=== PATIENT | male | born 1980 | race Caucasian/White ===

== ENCOUNTER 2021-11-13 09:33 | Emergency (ER) | payer OTHER, SELFPAY ==
[2021-11-13 09:44] VITALS: BP 141/108; PULSE 105; RESP 16; TEMP 36.3; O2SAT 98
--- NOTE | 2021-11-13 09:48 | ED.NAVMDI ---
HPI - Nausea/Vomiting/Diarrhea General Chief complaint: Nausea/Vomiting/Diarrhea Stated complaint: nausea, diarrhea, vomitting Time Seen by Provider: 11/13/21 09:48 Source: patient, RN notes reviewed and old records reviewed Mode of arrival: ambulatory Limitations: no limitations History of Present Illness HPI Narrative: 41-year-old male who presents to [facility] care with complaints of feeling 'Pukey' all day yesterday with nausea and vomiting but no diarrhea. Patient reports that he resumed his Zoloft this morning at dose he use to be on of 150 mg and felt shaky and lightheaded since taking. He went to work this morning and has had nausea and vomiting and also diarrhea today. He states that he had to leave work due to nausea and vomiting repeatedly. Patient states that he has some stomach cramping epigastric and mid abdominal area, denies any pain to lower abdominal region, no fevers,chills or sweats verbalized. Patient reports that he has had COVID vaccinations MD elicited complaint: nausea, vomiting and diarrhea Onset (ago): day(s) (2) Associated nausea: Yes Associated abdominal pain: Yes (cramping) Location of pain: epigastric and periumbilical Exacerbating factors: medication (resumed Zoloft this morning) Associated symptoms: loss of appetite, malaise, nausea/vomiting and other (abdominal cramping and lightheaded) Treatment prior to arrival: none Related Data Allergies Allergy/AdvReac Type Severity Reaction Status Date / Time shellfish derived Allergy Severe Anaphylactic Verified 03/19/20 14:11 Shock animal dander Allergy Intermediate Difficulty Verified 03/19/20 14:11 Breathing Review of Systems Review of Systems: CONSTITUTIONAL: Denies fever, chills, or sweats. EYES: Denies visual changes, redness, or discharge. ENT: Denies rhinorrhea, congestion, sore throat, or otalgia. CARDIOVASCULAR: Denies chest pain, palpitations, or edema. RESPIRATORY: Denies cough or dyspnea. GASTROINTESTINAL: states abdominal cramping, nausea, vomiting, or diarrhea. GENITOURINARY: Denies dysuria or hematuria. SKIN: Denies rash or itching. MUSCULOSKELETAL: Denies back pain, joint pain, or myalgia. NEUROLOGIC: Denies headache, numbness, or weakness, feels lightheaded. PSYCHIATRIC: Positive for anxiety or depression. All systems reviewed & are unremarkable except as noted in HPI and below PMFSH Past Medical History Medical History (Updated 11/13/21 @ 12:03 by Angy Tavarez NP) Anxiety and depression Asthma Back pain Overweight (BMI 25.0-29.9) Shortness of breath Surgical History Surgical History H/O left knee surgery (~02/1999) Family History Family History Father Alive and well Mother Stomach ulcer Social History Social History (Updated 11/13/21 @ 12:00 by Angy Tavarez NP) Smoking status: Never smoker Alcohol intake: current Substance use type: does not use Gender identity (if verbalized by the patient): Male Comments At time of signature, agree with nursing past medical, surgical, social and family history. There is no relevant family history pertinent to the presenting complaint Exam Narrative: GENERAL: Well-appearing, well-nourished, and in no acute distress. HEAD: Normocephalic, atraumatic. EYES: PERRLA and EOMI. ENT: Nares clear, no rhinorrhea or epistaxis. Mucous membranes moist.TM's normal with good light reflex, throat pink with no lesions or exudates NECK: Supple.no lymphadenopathy CHEST: Clear to auscultation. No respiratory distress.SAO2 98% on room air HEART: Regular rate and rhythm. No murmur heard. Normal peripheral pulses. ABDOMEN: Soft, tender epigastric and umbilical with cramping, nondistended, normal active bowel sounds, nausea and vomiting continues with emesis while in clinic X1. EXTREMITIES: Normal range of motion. No edema. SKIN: Warm, dry, no rash. NEURO: No focal de
[2021-11-13] MEDS: ONDANSETRON HCL ODT 4 MG TABLET SUBLINGUAL ×2 (10:03→11:10)
--- NOTE | 2021-11-13 10:49 | PC.NURSE ---
Tolerated zofran well. Given water to sip for fluid challenge.
[2021-11-13 11:16] VITALS: BP 126/80
--- NOTE | 2021-11-13 11:18 | PC.NURSE ---
No further vomiting since zofran. Able to keep a bottle of water down without vomiting
== END 2021-11-13 11:29 | disposition home or self-care (01) ==
PROVIDERS: Emergency Provider Registered Nurse; PCP Family Medicine
DX: K52.9 Noninfective gastroenteritis and colitis, unspecified (principal); J45.909 Unspecified asthma, uncomplicated
CPT/HCPCS: 99213; A9270; G0463

== ENCOUNTER 2022-04-08 08:28 | Inpatient (IN) | payer OTHER, SELFPAY ==
[2022-04-08] VITALS (9 sets, daily range): BP systolic 113–142; BP diastolic 73–95; PULSE 77–98; RESP 16–20; TEMP 36.2–37.2; O2SAT 96–100
--- NOTE | ~2022-04-08 | US_ITS ---
EXAMINATION: US abdomen limited DATE: 04/09/2022 09:40 INDICATION: Abdominal pain. Abnormal liver function tests. TECHNIQUE: Multiple grayscale and Doppler ultrasound images of the abdomen were obtained. COMPARISON: CT abdomen and pelvis 04/08/2022 FINDINGS: The head of the pancreas demonstrates heterogeneous echogenicity, consistent with acute ngo creatitis. There is diffuse hepatic steatosis with focal sparing in the gallbladder fossa. No liver s urface nodularity. There is normal flow in main portal vein. The gallbladder is distended and contain s sludge. No gallstones or gallbladder wall thickening. There was no sonographic Perry sign. The com mon duct is normal and measures 6 mm. IMPRESSION: 1. Acute pancreatitis. 2. Diffuse hepatic steatosis. 3. Gallbladder sludge. Gallbladder distention may be secondary to fasting. No gallbladder wall thicke keith, gallstones, or sonographic Perry sign to suggest acute cholecystitis. Reviewed, dictated and finalized at location A. Y LEVEL FINANCIAL ANALYST IMPRESSION: 1. Acute pancreatitis. 2. Diffuse hepatic steatosis. 3. Gallbladder sludge. Gallbladder distention may be secondary to fasting. No g allbladder wall thickening, gallstones, or sonographic Perry sign to suggest a cute cholecystitis.
--- NOTE | ~2022-04-08 | NM_ITS ---
EXAMINATION: NM hepatobiliary w pharm DATE: 04/10/2022 13:17 INDICATION: Right upper quadrant abdominal pain. Biliary sludge. COMPARISON: CT abdomen and pelvis 04/08/2022, ultrasound 04/09/2022 TECHNIQUE: 5.09 mCi Tc-99m mebrofenin (Choletec) was administered intravenously. Scintigraphic image s of the abdomen were obtained for one hour. Then, the patient drank 8 oz Ensure, and imaging was con tinued for 60 minutes. FINDINGS: There is normal clearance of radiotracer from the blood pool. There is homogeneous tracer u ptake by the liver. Activity progresses to the bowel and gallbladder. Gallbladder ejection fraction (GBEF) was 6%. Note that with this technique, normal GBEF >= 33%. IMPRESSION: 1. Low gallbladder ejection fraction, consistent with gallbladder dysfunction and/or chronic cholecy stitis. Reviewed, dictated and finalized at location A. ING TECHNICIAN IMPRESSION: 1. Low gallbladder ejection fraction, consistent with gallbladder dysfunction and/or chronic cholecystitis.
--- NOTE | ~2022-04-08 | CT_ITS ---
EXAMINATION: CT abdomen pelvis w con INDICATION: Right-sided abdominal pain TECHNIQUE: Computed tomographic images of the abdomen and pelvis were obtained after the administrati on of 100 cc of Omnipaque 350 intravenous contrast. The dose-length product (DLP) was 470.30 mGy-cm. Automated exposure control and iterative reconstruction technique were employed. COMPARISON: None available FINDINGS: Minimal dependent atelectasis is present in the lung bases. The heart size is normal. The l iver is diffusely low in attenuation when compared with the spleen, consistent with hepatic steatosis . The spleen, gallbladder, and adrenal glands are normal. There is edema in the head of the pancreas with acute peripancreatic fluid extending into the anterior pararenal space on the right and into the right pericolic gutter. The kidneys are unremarkable. No pathologically enlarged abdominal or pelvic lymph nodes are identified. There is no free intraperitoneal gas or evidence of bowel obstruction. T he appendix is normal. There is moderate lumbar spondylosis at L5-S1. A small umbilical hernia contai keith fat is noted. IMPRESSION: 1. Acute pancreatitis, likely interstitial edematous, with acute peripancreatic fluid collection exte nding into the anterior pararenal space on the right and right pericolic gutter. Reviewed, dictated and finalized at location L. MENTAL IRON WORKER IMPRESSION: 1. Acute pancreatitis, likely interstitial edematous, with acute peripancreatic fluid collection extending into the anterior pararenal space on the right and right pericolic gutter.
--- NOTE | 2022-04-08 09:22 | ED.ABDPAIN ---
HPI - Abdominal Pain General Chief Complaint: Abdominal Pain Stated Complaint: UPPER ABD PAIN X3DAYS Time Seen by Provider: 04/08/22 08:53 History of Present Illness HPI narrative: 41-year-old male history of anxiety and depression presents to the emergency room for evaluation of periumbilical and right upper quadrant abdominal pain. Patient states that he has been drinking heavily over the last couple of weeks since losing his job. States on Thursday he began experiencing right upper quadrant pain that radiated into his periumbilical area. States that he normally drinks 6 or more drinks at night twice a week until recently. On Thursday was experiencing multiple episodes of nonbloody nonbilious vomiting. His pain is worse with inspiration and movement. Related Data Allergies Allergy/AdvReac Type Severity Reaction Status Date / Time shellfish derived Allergy Severe Anaphylactic Verified 04/08/22 09:03 Shock animal dander Allergy Intermediate Difficulty Verified 04/08/22 09:03 Breathing Review of Systems Review of Systems: CONSTITUTIONAL: Denies fever, chills, or sweats. EYES: Denies visual changes, redness, or discharge. ENT: Denies rhinorrhea, congestion, sore throat, or otalgia. CARDIOVASCULAR: Denies chest pain, palpitations, or edema. RESPIRATORY: Denies cough or dyspnea. GASTROINTESTINAL: Reports abdominal pain, nausea vomiting GENITOURINARY: Denies dysuria or hematuria. SKIN: Denies rash or itching. MUSCULOSKELETAL: Denies back pain, joint pain, or myalgia. NEUROLOGIC: Denies headache, numbness, dizziness, or weakness. PSYCHIATRIC: Denies anxiety or depression. [facility] Past Medical History Medical History Anxiety and depression Asthma Back pain Overweight (BMI 25.0-29.9) Shortness of breath Surgical History Surgical History H/O left knee surgery (~02/1999) Family History Family History Father Alive and well Mother Stomach ulcer Social History Social History Smoking status: Never smoker Alcohol intake: current Substance use type: does not use Gender identity (if verbalized by the patient): Male Exam Narrative: GENERAL: Well-appearing, well-nourished, no physical limitations, and in no acute distress. HEAD: Normocephalic, atraumatic. EYES: Conjunctivae normal, PERRLA and EOMI. CHEST: Clear to auscultation. No respiratory distress. No wheezes rales or rhonchi. HEART: Regular rate and rhythm. No murmur heard. Normal peripheral pulses. ABDOMEN: Soft, right upper quadrant tenderness, periumbilical tenderness, right upper quadrant distention, normal active bowel sounds. BACK: No CVA tenderness EXTREMITIES: Normal range of motion. No edema. No clubbing or cyanosis SKIN: Warm, dry, no rash. No noted wounds NEURO: No focal deficits. Alert and oriented x3. MAEW. CN's II-XI intact bilaterally, normal gait PSYCH: Cooperative. Normal mood and affect. Course Vital Signs Vital signs: Vital Signs Temperature 36.2 C L 04/08/22 08:31 Pulse Rate 95 04/08/22 08:31 Respiratory Rate 18 04/08/22 08:31 Blood Pressure 142/89 H 04/08/22 08:31 Pulse Oximetry 100 04/08/22 08:31 Oxygen Delivery Room Air 04/08/22 08:31 Temperature 36.2 C L 04/08/22 08:31 Pulse Rate 84 04/08/22 09:01 Respiratory Rate 20 04/08/22 09:01 Blood Pressure 135/95 H 04/08/22 09:01 Pulse Oximetry 99 04/08/22 09:01 Oxygen Delivery Room Air 04/08/22 08:31 MDM - Abdominal Pain Lab Data 04/08/22 09:33 04/08/22 10:36 Labs: Lab Results 04/08/22 04/08/22 04/08/22 Range/Units 09:33 09:33 10:36 WBC 7.8 (4.5-10.0) K/mm3 RBC 4.60 (4.6-6.20) M/mm3 Hgb 15.8 (14.0-18.0) g/dL Hct 45.4 (42.0-52.0) % MCV 98.7 (80-100) fl [facility]
[2022-04-08 09:44] LABS: Add Urine Microscopic? YES; Appearance Urine Clear (Clear); Bilirubin Urine 2+ (Negative); Blood Urine Trace-Intact (Negative); Color Urine Amber (Yellow); Glucose Urine UA Negative (Negative); Ketones Urine Trace mg/dL (Negative); Leukocyte Esterase Ur Negative LEU/UL (Negative); Nitrate Urine Positive (Negative); Protein Urine 2+ mg/dL (Negative); Specific Grav Ur >= 1.030 (1.001-1.035)
[2022-04-08 09:46] LABS: Basophils Absolute Auto 0.1 K/mm3 (0.0-0.1); Basophils Percent Auto 0.6 % (0.2-1.2); Eosinophils Absolute Auto 0.1 K/mm3 (0-0.3); Eosinophils Percent Auto 1.3 % (0-4.4); Hematocrit 45.4 % (42.0-52.0); Hemoglobin 15.8 g/dL (14.0-18.0); Immature Granulocyte Absolute 0.03 K/mm3 (0.00-0.031); Immature Granulocyte Percent A 0.4 % (0-0.5); Immature Platelet Fraction Pct 14.6 % (0.9-11.2); Lymphocytes Absolute Auto 0.61 K/mm3 (0.9-3.2); Lymphocytes Percent Auto 7.8 % (18.3-44.2); Mean Corpuscular HGB Conc 34.8 g/dl (32-36); Mean Corpuscular Hemoglobin 34.3 pg (26-34); Mean Corpuscular Volume 98.7 fl (80-100); Mean Platelet Volume 11.8 fl (7.4-10.4); Monocytes Absolute Auto 0.4 K/mm3 (0.1-0.6); Monocytes Percent Auto 5.4 % (2.6-8.5); Neutrophils Absolute Auto 6.6 K/mm3 (1.3-6.7); Neutrophils Percent Auto 84.5 % (45.5-73.1); Platelet Count Result 55 k/mm3 (150-375); Red Cell Distribution Width 12.6 % (11.5-14.5); White Blood Count 7.8 K/mm3 (4.5-10.0)
[2022-04-08] MEDS: ONDANSETRON INJ 4 MG/2 ML VIAL IV PUSH (09:59)
[2022-04-08] MEDS: SODIUM CHLORIDE 0.9% IV 1,000 ML 999 ML IV CONT ×2 (09:59→12:54)
[2022-04-08] MEDS: HYDROmorphone HCL INJ (*CRX) 1 MG/ML SYR IV PUSH ×4 (09:59→20:27)
[2022-04-08 10:12] LABS: Bacteria Urine Trace /hpf; Mucus Urine Moderate /lpf; RBC Urine 0-2 /hpf (0-2); Squamous Epithelial Cell Urine Occasional /hpf (Few)
[2022-04-08 10:58] LABS: Lactic Acid Reflex 0.9 mmol/L (0.7-2.0)
[2022-04-08 11:06] LABS: Alanine Aminotransferase 115 U/L (6-50); Albumin Level 3.4 g/dL (3.5-5.1); Alkaline Phosphatase 134 U/L (38-126); Anion Gap 5 mmol/L (8-16); Aspartate Amino Transferase 257 U/L (17-59); Bilirubin,Total 3.3 mg/dL (0.2-1.3); Blood Urea Nitrogen 7 mg/dL (9-20); Calcium 7.1 mg/dL (8.4-10.2); Carbon Dioxide 26 mmol/L (22-30); Chloride 98 mmol/L (98-107); Estimated CRCL calculation 123 ml/min; Estimated Glomerular Filt Rate > 60; Glucose 118 mg/dL (65-110); Lipase 829 U/L (23-300); Potassium 3.8 mmol/L (3.4-5.0); Sodium 129 mmol/L (137-145)
[2022-04-08 13:31] LABS: Influenza A QL RT-PCR Negative (Negative); Influenza B QL RT-PCR Negative (Negative); SARS-CoV-2 RNA PCR Negative
[2022-04-08] MEDS: SODIUM CHLORIDE 0.9% IV 1,000 ML 125 ML IV CONT ×2 (15:22→23:58)
--- NOTE | 2022-04-08 18:00 | PM.IMHP ---
H&P: HPI History of Present Illness Date/Time: 04/08/22 18:00 Chief Complaint: Abdominal pain. Narrative: This is a 41-year-old male with history of alcohol abuse, depression, and anxiety presented to the emergency department for evaluation of abdominal pain. He has had problems with alcohol for many years and he has had periods of sobriety and an fact he had not had anything to drink for approximately 3 weeks (typically drinks gin and/or vodka). On Thursday however he drank a large bottle of wine due to the accumulation of stressors in his personal life. Later that night he had a pressure-like discomfort in the right upper abdomen with mild swelling in the abdomen. Since that time it has settled more so into the epigastric region and left upper quadrant and he reports a constant pressure and cramping sensation which is occasionally sharp and stinging, especially with movement, cough, deep inspiration, and laughing. He vomited for the 1st 24 hours but that has since resolved. His appetite continues to be poor however he has been trying to eat a bland diet. He has not noticed that food aggravates his symptoms. Urine has been dark and almost orange in color and today his girlfriend noticed that his eyes looked a bit yellow. He had some mild tremors and anxiety but he has not had any overt alcohol withdrawal symptoms in the last 24 hours. He denies fever, hematemesis, chest pain, shortness a breath, melena, and hematochezia. Labs were significant for a sodium of 129, creatinine 0.80, total bilirubin 3.3, AST 257, ALT 115, alkaline phosphatase 134, lipase 829, albumin 3.4, platelets 55. CT showed evidence of acute pancreatitis with peripancreatic fluid collection and he is being admitted in this setting for further care. He has no prior episodes of pancreatitis. Review of Systems Review of Systems: Twelve systems were reviewed and are negative except for as per HPI. [facility] Past Medical History Medical History (Updated 04/08/22 @ 23:27 by Karin Hampton PA-C) Alcohol abuse Anxiety and depression Asthma Hepatic steatosis Surgical History Surgical History (Updated 04/08/22 @ 23:24 by Karin Hampton PA-C) History of left knee surgery Family History Family History Father Alive and well Mother Stomach ulcer Social History Social History (Updated 04/08/22 @ 23:25 by Karin Hampton PA-C) Social History: Surrogate medical decision maker: Lexii Vidal, mother. Code status: Full code. Smoking status: Former smoker Tobacco type: cigarettes Alcohol intake: current Drinks per week: 6 Alcohol use details: Longstanding issues with alcohol abuse over the years. Substance use: never Substance use type: does not use Lack of Transportation: No Lack of Food: Never True Current Housing: I Have Housing Concerned About Future Housing: No Difficulty Paying Gas/Electric Bills: No Difficulty Paying for Meds: No Currently Unemployed: YES Education: High School Diploma/GED Difficulty w/ Childcare or Family Care: No Additional living arrangements comments: Has 3 children, 4-year-old daughter lives with him. Additional occupation/education comments: Recently unemployed. Spiritual care concerns: No Meds Home Medications and Allergies Home Medications Medication Instructions Recorded Confirmed Type albuterol sulfate 90 mcg/actuation 2 puff inhalation Q4H PRN 06/17/19 04/08/22 Rx aerosol inhaler (ProAir HFA) shortness of breath or wheezing #8.5 grams bupropion HCl 150 mg 24 hr tablet, 150 mg PO QAM 04/08/22 04/08/22 History extended release mometasone-formoterol HFA 200 2 puff inhalation Q12H 04/08/22 04/08/22 History mcg-5 mcg/actuation aerosol inhaler (Dulera) Allergies Allergy/AdvReac Type Severity Reaction Status Date / Time shellfish derived Allergy Severe Anaphylactic Verified 04/08/22 09:03 Shock
--- NOTE | 2022-04-08 20:44 | PC.NURSE ---
Patient Dilaudid, assessment was not done during previous shift, so instead was complete at 20:27 on evening shift.
[2022-04-09] MEDS: HYDROmorphone HCL INJ (*CRX) 1 MG/ML SYR 0.5 MG IV PUSH ×3 (00:36→08:54)
[2022-04-09 06:00] VITALS: BP 106/66; PULSE 80; RESP 20; TEMP 36.7; O2SAT 96
[2022-04-09 06:32] LABS: Hematocrit 38.4 % (42.0-52.0); Immature Platelet Fraction Pct 15.5 % (0.9-11.2); Mean Corpuscular HGB Conc 33.9 g/dl (32-36); Mean Corpuscular Hemoglobin 34.6 pg (26-34); Mean Corpuscular Volume 102.1 fl (80-100); Mean Platelet Volume 12.1 fl (7.4-10.4); Platelet Count Result 41 k/mm3 (150-375); Red Blood Count 3.76 M/mm3 (4.6-6.20); Red Cell Distribution Width 13.2 % (11.5-14.5)
[2022-04-09 06:39] LABS: INR 1.1; Partial Thromboplastin Time 33.3 SECONDS (22.3-36.8); Prothrombin Time 13.4 Seconds (11.1-14.7)
[2022-04-09 07:02] LABS: Alanine Aminotransferase 94 U/L (6-50); Albumin Level 2.9 g/dL (3.5-5.1); Alkaline Phosphatase 97 U/L (38-126); Anion Gap 1 mmol/L (8-16); Aspartate Amino Transferase 191 U/L (17-59); Bilirubin,Total 2.3 mg/dL (0.2-1.3); Blood Urea Nitrogen < 2 mg/dL (9-20); Calcium 7.2 mg/dL (8.4-10.2); Carbon Dioxide 27 mmol/L (22-30); Chloride 102 mmol/L (98-107); Estimated CRCL calculation 139 ml/min; Estimated Glomerular Filt Rate > 60; Glucose 89 mg/dL (65-110); Lipase 584 U/L (23-300); Magnesium 2.6 mg/dL (1.6-2.3); Potassium 3.8 mmol/L (3.4-5.0); Sodium 130 mmol/L (137-145)
[2022-04-09 07:15] LABS: Triglycerides 748 mg/dL (<150)
[2022-04-09 07:23] LABS: Hepatitis B Surface Antigen Negative (Negative)
[2022-04-09 07:29] LABS: HAV RESULT Negative (Negative); Hepatitis B Core IgM Result Negative (Negative)
[2022-04-09 07:40] LABS: Hepatitis C Virus Antibody Negative (Negative)
[2022-04-09] MEDS: SODIUM CHLORIDE 0.9% IV 1,000 ML 125 ML IV CONT (07:42)
[2022-04-09] MEDS: FOLIC ACID 1 MG TABLET PO (07:59)
[2022-04-09] MEDS: buPROPion HCL XL (24 HR) 150 MG TABCR PO (07:59)
[2022-04-09] MEDS: THIAMINE HCL 100 MG TABLET PO (07:59)
[2022-04-09] MEDS: THERAPEUTIC MULTIVITAMINS/MINERALS TAB (*BKC) 1 TABLET PO (07:59)
--- NOTE | 2022-04-09 08:46 | PM.IMPN ---
Progress Note: A&P Assessment and Plan (1) Acute pancreatitis: Qualifiers: Pancreatitis type: unspecified pancreatitis type Acute pancreatitis complication: no infection or necrosis Qualified Code(s): K85.90 - Acute pancreatitis without necrosis or infection, unspecified Code(s): K85.90 - Acute pancreatitis without necrosis or infection, unspecified Status: Acute Assessment and Plan: Most likely due to alcohol abuse, however, could be due to gallbladder sludge and/or hypertriglyceridemia. Abdominal US with biliary sludge. LFTs elevated. Check HIDA scan. Consult GI Continue supportive care IV fluid rehydration. Trial clear liquid diet Analgesics and antiemetics are available as needed. Triglycerides 784. (2) Alcoholic hepatitis: Qualifiers: Ascites presence: without ascites Qualified Code(s): K70.10 - Alcoholic hepatitis without ascites Code(s): K70.10 - Alcoholic hepatitis without ascites Status: Acute Assessment and Plan: Continue supportive care as detailed above. hepatitis panel negative PT/INR/PTT within normal limits. Platelets low 41 RUQ abdominal US with dopplers - shows no portal vein thrombosis, +biliary sludge GI consulted (3) Hepatic steatosis: Code(s): K76.0 - Fatty (change of) liver, not elsewhere classified Status: Acute Assessment and Plan: Noted on CT and US. He denies known liver disease. Triglycerides 784. Concerns for chronic alcoholic liver disease with low albumin and thrombocytopenia, however, this may be secondary to acute disease. (4) Thrombocytopenia: Code(s): D69.6 - Thrombocytopenia, unspecified Status: Acute Assessment and Plan: Concerns for chronic alcoholic liver disease with low albumin and thrombocytopenia on labs. No cirrhosis noted on CT or US. Platelet count 41. Monitor for acute bleeding. Hold antiplatelet or anticoagulation. (5) Alcohol abuse: Code(s): F10.10 - Alcohol abuse, uncomplicated Status: Acute Assessment and Plan: Mildly anxious though not going through acute withdrawal at this time. Monitor CIWA per protocol- currently <8. We discussed alcohol cessation, including naltrexone injections, counseling, rehab services. He is wanting to quit drinking and reports he is currently in counseling. consult care coordination for substance abuse resources. (6) Anxiety and depression: Code(s): F41.9 - Anxiety disorder, unspecified; F32.A - Depression, unspecified Status: Chronic Assessment and Plan: Continue bupropion. Time Spent With Patient Time with patient: 25 - 35 minutes (>50% time spent in patient education and alcohol cessation) Subjective Date/time seen: 04/09/22 08:46 Patient is a 41 yo male with h/o alcohol abuse, asthma, anxiety and depression, who presented to the ED with c/o abdominal pain, vomiting, anorexia and jaundice. His last drink was Thursday of last week. He typically drinks one pint of vodka daily. His alcohol intake has worsened due to life stressors from his divorce, custody harris and losing his job. He reports his abdominal pain is somewhat improved today. No nausea or emesis. He has been having eric-colored semi-loose stool and dark urine, although this is improving. He reports that he would like to quit drinking and has previously been to rehab in the past for this. Review of Systems Review of Systems: All systems reviewed & are unremarkable except as noted in HPI and below Exam Narrative: General: No acute distress. HEENT: Mild scleral icterus. Pupils equal and round. Moist mucous membranes. Neck: Supple. Respiratory: Lungs are clear to auscultation bilaterally. Cardiovascular: Regular rate and rhythm with S1-S2. Gastrointestinal: Abdomen soft, nondistended with positive bowel sounds. tender to palpation throughout the upper quadrant, more so in the right upper quadrant and epigastric
[2022-04-09] MEDS: FLUTICASONE/SALMETEROL 230-21 MCG INHALER 1 PUFF 2 PUFF INHALATION ×2 (10:10→22:09)
[2022-04-09 10:14] VITALS: O2SAT 96
[2022-04-09 14:00] VITALS: BP 137/76; PULSE 83; RESP 20; TEMP 36.8; O2SAT 99
[2022-04-09] MEDS: SODIUM CHLORIDE 0.9% IV 1,000 ML 150 ML IV CONT ×2 (15:41→23:22)
[2022-04-09 20:00] VITALS: BP 126/68; PULSE 76; RESP 18; TEMP 37.4; O2SAT 97
[2022-04-09 22:09] VITALS: O2SAT 98
[2022-04-09 23:28] VITALS: BP 146/75; PULSE 79; RESP 16; TEMP 36.8; O2SAT 97
[2022-04-10 03:57] VITALS: BP 128/84; PULSE 75; RESP 18; TEMP 36.6; O2SAT 97
[2022-04-10] MEDS: SODIUM CHLORIDE 0.9% IV 1,000 ML 150 ML IV CONT (06:03)
[2022-04-10 06:19] LABS: Hematocrit 38.5 % (42.0-52.0); Hemoglobin 13.1 g/dL (14.0-18.0); Immature Platelet Fraction Pct 11.8 % (0.9-11.2); Mean Corpuscular Hemoglobin 34.1 pg (26-34); Mean Corpuscular Volume 100.3 fl (80-100); Mean Platelet Volume 11.7 fl (7.4-10.4); Platelet Count Result 52 k/mm3 (150-375); Red Blood Count 3.84 M/mm3 (4.6-6.20); Red Cell Distribution Width 13.4 % (11.5-14.5); White Blood Count 4.1 K/mm3 (4.5-10.0)
[2022-04-10 06:44] LABS: Alanine Aminotransferase 111 U/L (6-50); Albumin Level 3.1 g/dL (3.5-5.1); Alkaline Phosphatase 93 U/L (38-126); Anion Gap 3 mmol/L (8-16); Aspartate Amino Transferase 178 U/L (17-59); Bilirubin,Total 2.5 mg/dL (0.2-1.3); Calcium 7.5 mg/dL (8.4-10.2); Carbon Dioxide 25 mmol/L (22-30); Chloride 105 mmol/L (98-107); Cholesterol 278 mg/dL (0-200); Estimated CRCL calculation 160 ml/min; Estimated Glomerular Filt Rate > 60; Glucose 99 mg/dL (65-110); HDL Direct 24 mg/dL; Lipase 414 U/L (23-300); Potassium 3.6 mmol/L (3.4-5.0); Sodium 133 mmol/L (137-145); Triglycerides 410 mg/dL (<150)
[2022-04-10 06:57] LABS: LDL Cholesterol Direct 102 mg/dL
[2022-04-10 07:05] LABS: Blood Urea Nitrogen < 2 mg/dL (9-20)
[2022-04-10 08:42] VITALS: PULSE 74
--- NOTE | 2022-04-10 09:21 | PM.IMPN ---
Progress Note: A&P Assessment and Plan (1) Acute pancreatitis: Qualifiers: Acute pancreatitis complication: no infection or necrosis Pancreatitis type: unspecified pancreatitis type Qualified Code(s): K85.90 - Acute pancreatitis without necrosis or infection, unspecified Code(s): K85.90 - Acute pancreatitis without necrosis or infection, unspecified Status: Acute Assessment and Plan: Most likely due to alcohol abuse, however, could be due to gallbladder sludge and/or hypertriglyceridemia. Abdominal US with biliary sludge. LFTs elevated. Check HIDA scan. Consult GI Continue supportive care IV fluid rehydration. Trial clear liquid diet Analgesics and antiemetics are available as needed. Triglycerides 784. (2) Alcoholic hepatitis: Qualifiers: Ascites presence: without ascites Qualified Code(s): K70.10 - Alcoholic hepatitis without ascites Code(s): K70.10 - Alcoholic hepatitis without ascites Status: Acute Assessment and Plan: Continue supportive care as detailed above.? hepatitis panel negative PT/INR/PTT within normal limits. Platelets low 41 RUQ abdominal US with dopplers - shows no portal vein thrombosis, +biliary sludge GI consulted (3) Hepatic steatosis: Code(s): K76.0 - Fatty (change of) liver, not elsewhere classified Status: Acute Assessment and Plan: Noted on CT and US. He denies known liver disease. Triglycerides 784. Concerns for chronic alcoholic liver disease with low albumin and thrombocytopenia, however, this may be secondary to acute disease. (4) Thrombocytopenia: Code(s): D69.6 - Thrombocytopenia, unspecified Status: Acute Assessment and Plan: Concerns for chronic alcoholic liver disease with low albumin and thrombocytopenia on labs. No cirrhosis noted on CT or US. Platelet count 41. Monitor for acute bleeding. Hold antiplatelet or anticoagulation. (5) Alcohol abuse: Code(s): F10.10 - Alcohol abuse, uncomplicated Status: Acute Assessment and Plan: Mildly anxious though not going through acute withdrawal at this time. Monitor CIWA per protocol- currently <8. We discussed alcohol cessation, including naltrexone injections, counseling, rehab services. He is wanting to quit drinking and reports he is currently in counseling. consult care coordination for substance abuse resources. (6) Anxiety and depression: Code(s): F41.9 - Anxiety disorder, unspecified; F32.A - Depression, unspecified Status: Chronic Assessment and Plan: Continue bupropion. (7) Urinary tract infection: Code(s): N39.0 - Urinary tract infection, site not specified Status: Acute Assessment and Plan: UA positive for nitrates, 4-6 WBC, trace bacteria and occasional epi cells Started on Rocephin 1 gram IV in the ED. Urine culture pending Subjective Date/time seen: 04/10/22 09:21 Interval history: Patient is a 41 yo male with h/o alcohol abuse, asthma, anxiety and depression, who presented to the ED with c/o abdominal pain, vomiting, anorexia and jaundice. His last drink was Thursday of last week. He typically drinks one pint of vodka daily. His alcohol intake has worsened due to life stressors from his divorce, custody harris and losing his job. Exam Narrative: General:?No acute distress. HEENT:??Mild scleral icterus. Pupils equal and round. Moist mucous membranes. Neck:??Supple. Respiratory:?Lungs are clear to auscultation bilaterally. Cardiovascular:??Regular rate and rhythm with S1-S2. Gastrointestinal:??Abdomen soft, nondistended with positive bowel sounds. tender to palpation throughout the upper quadrant, more so in the right upper quadrant and epigastric region. Skin:? Warm and dry. Mildly jaundiced. Extremities:??No cyanosis, clubbing, or edema. Radial and pedal pulses intact. Grossly normal ROM. Neurological:??AOx4. Cranial nerves 2-12 are grossly intact. No tremors.
[2022-04-10] MEDS: FLUTICASONE/SALMETEROL 230-21 MCG INHALER 1 PUFF 2 PUFF INHALATION (09:42)
[2022-04-10 09:43] VITALS: PULSE 74; RESP 20; O2SAT 97
[2022-04-10 09:46] VITALS: PULSE 74; RESP 20
[2022-04-10 14:00] VITALS: BP 147/82; PULSE 82; RESP 20; TEMP 36.7; O2SAT 98
[2022-04-10] MEDS: FOLIC ACID 1 MG TABLET PO (14:59)
[2022-04-10] MEDS: buPROPion HCL XL (24 HR) 150 MG TABCR PO (14:59)
[2022-04-10] MEDS: THIAMINE HCL 100 MG TABLET PO (15:00)
[2022-04-10] MEDS: MULTIVITAMINS THERAPEUTIC TAB (*BKC) 1 TABLET PO (15:00)
[2022-04-10] MEDS: THERAPEUTIC MULTIVITAMINS/MINERALS TAB (*BKC) 1 TABLET PO (15:00)
--- NOTE | 2022-04-10 15:28 | WPDGICN ---
Assessment and Plan Assessment and plan (1) Acute pancreatitis: Qualifiers: Acute pancreatitis complication: no infection or necrosis Pancreatitis type: unspecified pancreatitis type Qualified Code(s): K85.90 - Acute pancreatitis without necrosis or infection, unspecified Code(s): K85.90 - Acute pancreatitis without necrosis or infection, unspecified Status: Acute Assessment and Plan: clinically better, tolerating diet and denies any more pain or nausea combination from alcohol abuse and elevated TG he says that won't drink anymore, recommend to go AA and also will follow-up with pcp to discuss treatment option for elevated TG (fibrate or niacin, also diet) ok to go home with follow-up pcp and office (2) Alcoholic hepatitis: Qualifiers: Ascites presence: without ascites Qualified Code(s): K70.10 - Alcoholic hepatitis without ascites Code(s): K70.10 - Alcoholic hepatitis without ascites Status: Acute Assessment and Plan: wonder if he has chronic elevated lft's, now better will need follow-up as outpatient hepatitis panel negative needs to stop drinking (3) Alcohol abuse: Code(s): F10.10 - Alcohol abuse, uncomplicated Status: Acute (4) Thrombocytopenia: Code(s): D69.6 - Thrombocytopenia, unspecified Status: Acute Assessment and Plan: repeat as outpatient probably related to alcohol abuse and underlying liver disease from alcohol (5) Hypertriglyceridemia: Code(s): E78.1 - Pure hyperglyceridemia Status: Acute (6) Anxiety and depression: Code(s): F41.9 - Anxiety disorder, unspecified; F32.A - Depression, unspecified Status: Chronic GI Consult Note Consult date/time: 04/10/22 15:28 Reason for consult: alcoholic pancreatitis HPI: Jeyson Vidal is a 41 year old male with alcohol abuse, depression, and anxiety who came to ER 2 days ago with worsening upper abdominal pain. He has been drinking intermittently with period of sobriety but few days ago had stress at home and he got drunk then with worsening upper abdominal pain that got severe and did not go away. Also had nausea and vomiting. Blood work showed sodium of 129, creatinine 0.80, total bilirubin 3.3, AST 257, ALT 115, alkaline phosphatase 134, lipase 829, albumin 3.4, platelets 55. CT showed evidence of acute pancreatitis with peripancreatic fluid collection. Treated medically, diet advanced and pain is almost gone now, also tolerated low fat soft diet, no more nausea and he is ready to go home. Also found to have TG 740 (he is not taking any med), ultrasound with sludge. Hepatitis panel negative. Review of Systems Review of Systems: CONSTITUTIONAL: Denies fever, chills, or sweats. EYES: Denies visual changes, redness, or discharge. ENT: Denies rhinorrhea, congestion, sore throat, or otalgia. CARDIOVASCULAR: Denies chest pain, palpitations, or edema. RESPIRATORY: Denies cough or dyspnea. GASTROINTESTINAL: Reports abdominal pain, nausea vomiting GENITOURINARY: Denies dysuria or hematuria. SKIN: Denies rash or itching. MUSCULOSKELETAL: Denies back pain, joint pain, or myalgia. NEUROLOGIC: Denies headache, numbness, dizziness, or weakness. PSYCHIATRIC: + anxiety. [facility] Past Medical History Medical History (Updated 04/10/22 @ 15:32 by Scott Lu MD) Alcohol abuse Anxiety and depression Asthma Hepatic steatosis Hypertriglyceridemia Surgical History Surgical History (Updated 04/08/22 @ 23:24 by Karin Hampton PA-C) History of left knee surgery Family History Family History Father Alive and well Mother Stomach ulcer Social History Social History (Updated 04/08/22 @ 23:25 by Karin Hampton PA-C) Social History: Surrogate medical decision maker: Lexii Vidal, mother. Code status: Full code. Smoking status: Former smoker Tobacco type: cigare
--- NOTE | 2022-04-10 15:44 | PM.DS ---
DS: Admitting Diagnosis Discharge Date 04/10/2022 1544 Admitting Diagnosis Acute pancreatitisAlcoholic hepatitis Hepatic steatosis Thrombocytopenia Alcohol abuse Anxiety and depression DS: Discharge Diagnosis Discharge Diagnosis (1) Acute pancreatitis: Qualifiers: Acute pancreatitis complication: no infection or necrosis Pancreatitis type: unspecified pancreatitis type Qualified Code(s): K85.90 - Acute pancreatitis without necrosis or infection, unspecified Code(s): K85.90 - Acute pancreatitis without necrosis or infection, unspecified Status: Acute Assessment and Plan: Most likely due to alcohol abuse, however, could be due to gallbladder sludge and/or hypertriglyceridemia. Abdominal US with biliary sludge. LFTs elevated. HIDA scan- chronic cholecystitis. Consulted GI Continue supportive care IV fluid rehydration. NPO to clear liquid diet with good tolerance advanced to low fat diet with good tolerance. Analgesics and antiemetics are available as needed. Triglycerides 784. (2) Alcoholic hepatitis: Qualifiers: Ascites presence: without ascites Qualified Code(s): K70.10 - Alcoholic hepatitis without ascites Code(s): K70.10 - Alcoholic hepatitis without ascites Status: Acute Assessment and Plan: Patient presented with abdominal pain, elevated LFTs especially Tbili, eric-colored stools, and jaundice. Continue supportive care as detailed above.? hepatitis panel negative PT/INR/PTT within normal limits. Platelets low 41 RUQ abdominal US with dopplers - shows no portal vein thrombosis, +biliary sludge GI consulted coh (3) Hepatic steatosis: Code(s): K76.0 - Fatty (change of) liver, not elsewhere classified Status: Acute Assessment and Plan: Noted on CT and US. He denies known liver disease. Triglycerides 784. Concerns for chronic alcoholic liver disease with low albumin and thrombocytopenia, however, this may be secondary to acute disease. (4) Thrombocytopenia: Code(s): D69.6 - Thrombocytopenia, unspecified Status: Acute Assessment and Plan: Concerns for chronic alcoholic liver disease with low albumin and thrombocytopenia on labs. No cirrhosis noted on CT or US. Platelet count 41. Monitor for acute bleeding. Hold antiplatelet or anticoagulation. (5) Alcohol abuse: Code(s): F10.10 - Alcohol abuse, uncomplicated Status: Acute Assessment and Plan: Mildly anxious though not going through acute withdrawal at this time. Monitor CIWA per protocol- currently <8. We discussed alcohol cessation, including naltrexone injections, counseling, rehab services. He is wanting to quit drinking and reports he is currently in counseling. consult care coordination for substance abuse resources. (6) Anxiety and depression: Code(s): F41.9 - Anxiety disorder, unspecified; F32.A - Depression, unspecified Status: Chronic Assessment and Plan: Continued Wellbutrin (7) Urinary tract infection: Qualifiers: Hematuria presence: without hematuria Urinary tract infection type: acute cystitis Qualified Code(s): N30.00 - Acute cystitis without hematuria Code(s): N39.0 - Urinary tract infection, site not specified Status: Acute Assessment and Plan: UA positive for nitrates, 4-6WBC He was treated with IV Rocephin 1 gram Q24 hours Urine culture pending at discharge. He was discharged on cefdinir 300 mg PO BID x 4 more days. (8) Hypertriglyceridemia: Code(s): E78.1 - Pure hyperglyceridemia Status: Acute Assessment and Plan: Triglycerides 742 to 410, LDL 102, HDL 24, LIpitor 40 mg PO daily started at discharge Counseled on low fat diet and alcohol abstinence. (9) Chronic cholecystitis due to gallbladder calculus with obstruction: Code(s): K80.11 - Calculus of gallbladder with chronic cholecystitis with obstruction Status: Acute
[2022-04-16 10:31] LABS: Apolipoprotein B 175 mg/dL (<90)
== END 2022-04-10 17:13 | disposition home or self-care (01) | DRG 282 ==
LOC: ANHED 12:30 → ANH3MEDSUR 13:57
PROVIDERS: Nurse Practitioner Family; Physician Assistant; Admitting Provider Family Medicine; Emergency Provider Nurse Practitioner Family; PCP Family Medicine; Visit Provider Internal Medicine Gastroenterology
DX: K85.20 Alcohol induced acute pancreatitis without necrosis or infection (principal); D69.6 Thrombocytopenia, unspecified; K70.10 Alcoholic hepatitis without ascites; K70.0 Alcoholic fatty liver; N30.00 Acute cystitis without hematuria; E78.1 Pure hyperglyceridemia; F10.10 Alcohol abuse, uncomplicated; F32.A Depression, unspecified; F41.9 Anxiety disorder, unspecified; K80.11 Calculus of gallbladder with chronic cholecystitis with obstruction; Z20.822 Contact with and (suspected) exposure to COVID-19; Z87.891 Personal history of nicotine dependence
CPT/HCPCS: 36415; 74177; 76705; 78227; 80053; 80061; 80074; 81001; 82172; 83605; 83690; 83735; 84478; 85025; 85027; 85055; 85610; 85730; 87086; 87636; 94640; 96361; 96365; 96375; 96376; 99285; A9270; A9537; G0378; G0379; J0696; J1170; J2405; J2805; J7030; Q9967

== ENCOUNTER 2024-02-27 06:08 | Emergency (ER) | payer OTHER, SELFPAY ==
[2024-02-27 06:12] VITALS: BP 145/95; PULSE 90; RESP 18; TEMP 36.8; O2SAT 98
[2024-02-27 06:18] VITALS: BP 145/95; PULSE 93; RESP 18; TEMP 36.8; O2SAT 96
--- NOTE | 2024-02-27 06:19 | ECG_ITS ---
Test Date: 2024-02-27 06:25:57 Measurements Intervals [place] Rate: 88 P: 48 UT: 164 QRS: 50 QRSD: 109 T: 33 QT: 373 QTc: 452 Interpretive Statements SINUS RHYTHM BASELINE ARTIFACT- III, V5-V6 NORMAL ECG No previous ECG available for comparison Electronically Signed On 02-27-2024 06:36:27 REGIONAL PROGRAM MANAGER by Jr Garcia D.O.
[2024-02-27] MEDS: SODIUM CHLORIDE 0.9% IV 1,000 ML 999 ML IV CONT (06:39)
--- NOTE | 2024-02-27 06:59 | PC.NURSE ---
patient to ed for stated chest pain. While RN completing EKG, patient continues to ask for cups of water. RN informed patient that he probably should not drink if he feels nauseated. Patient insist on drinking water. Then patient starts to complain about feeling dizzy. Patients Blood pressure was 82/54, RN got verbal order from MD Sandoval for 1 L of Normal Saline. Patient b/p improved to 140/97. Patient is now yelling out the room asking for the nurse to turn alarms off. Patient has noticeable ETOH smell. Patient is impulsive and repeatedly ask for request. RN tried to place patient in hospital gown, patient refused. Patient is well kempt.
--- NOTE | 2024-02-27 07:38 | ED.ABDPAIN ---
HPI - Abdominal Pain General Chief Complaint: Alcohol Stated Complaint: ETOH withdrawal Time Seen by Provider: 02/27/24 06:54 History of Present Illness HPI narrative: 43-year-old male presenting ED with a chief complaint of alcohol withdrawal. Patient states that he went to a bad break-up and started drinking heavily. Now he is seeking help because he says that he has alcohol withdrawal. Patient notes that every night when he tries to go to bed his heart is racing. His mind is racing and he cannot sleep. He then drinks alcohol to go to sleep. But then when he wakes up he goes to the same cycle again. Patient has seen seen at an outside hospital 3 days ago for similar symptoms and was given Ativan discharged. Patient says he is currently homeless and living out of a hotels. patient states needs to stay here.Patient is denying SI or HI. No nausea vomiting. No diaphoresis. No tremors. patient states is there any way I can get Ativan in my IV? He is stating that it really takes the edge off. Related Data Home Medications Medication Instructions Recorded Confirmed bupropion HCl 150 mg 24 hr tablet, 150 mg PO QAM 04/08/22 06/05/22 extended release mometasone-formoterol HFA 200 2 puff inhalation Q12H 04/08/22 06/05/22 mcg-5 mcg/actuation aerosol inhaler (Dulera) Allergies Allergy/AdvReac Type Severity Reaction Status Date / Time shellfish derived Allergy Severe Anaphylactic Verified 06/05/22 11:58 Shock animal dander Allergy Intermediate Difficulty Verified 06/05/22 11:58 Breathing PMFSH Past Medical History Medical History (Updated 02/27/24 @ 07:52 by Mihai Hassan MD) Anxiety and depression Asthma Hepatic steatosis Hypertriglyceridemia Overweight (BMI 25.0-29.9) Surgical History Surgical History History of left knee surgery Family History Family History Father Alive and well Mother Stomach ulcer Social History Social History Social History: Surrogate medical decision maker: Lexii Vidal, mother. Code status: Full code. Smoking status: Former smoker Tobacco type: cigarettes Alcohol intake: current Drinks per week: 6 Alcohol use details: Longstanding issues with alcohol abuse over the years. Substance use: never Substance use type: does not use Lack of Transportation: No Lack of Food: Never True Current Housing: I Have Housing Concerned About Future Housing: No Difficulty Paying Gas/Electric Bills: No Difficulty Paying for Meds: No Currently Unemployed: YES Education: High School Diploma/GED Difficulty w/ Childcare or Family Care: No Additional living arrangements comments: Has 3 children, 4-year-old daughter lives with him. Additional occupation/education comments: Recently unemployed. Spiritual care concerns: No Exam Narrative: APPEARANCE: No apparent distress. Patient is resting comfortably in bed Head: atraumatic. EYES: EOMI, NOSE: Atraumatic NECK: Trachea midline RESPIRATORY: No increased rate of breathing clear to auscultation CARDIOVASCULAR: normal pulse rate ABDOMINAL: Non-distended soft nontender MUSCULOSKELETAl: No obvious deformities NEURO: Alert. Moving 4/4 extremities, no tremors SKIN:: no diaphoresis PSYCHIATRIC: Normal affect Course Vital Signs Vital signs: Vital Signs Temperature 98.2 F 02/27/24 06:12 Pulse Rate 90 02/27/24 06:12 Respiratory Rate 18 02/27/24 06:12 Blood Pressure 145/95 H 02/27/24 06:12 Pulse Oximetry 98 02/27/24 06:12 Oxygen Delivery Room Air 02/27/24 06:12 Fraction of Inspired Oxygen 21 02/27/24 06:12 Temperature 98.2 F 02/27/24 06:18 Pulse Rate 93 02/27/24 06:18 Respiratory Rate 18 02/27/24 06:18 Blood Pressure 145/95 H 02/27/24 06:18 Pulse Oximetry 96 02/27/24 06:18 Oxygen Delivery Room Air 02/27/24 06:12 Fraction of Inspired Oxygen 21 02/27/24 06:12 MDM - Abdominal Pain MDM Narrative Medical decision making narrative: -Course: 43-year-old male presenting ED for possible alcohol withdrawal. The patient has a CIWA score of 4 for anxiety but no other physical manifestations of alcohol withdrawal. His vital signs are stable. He is well-appearing. He has no findings his physical exam. No SI HI. Patient is currently homeless and staying in hotels. He is requesting IV Ativan which I don't think is appropriate. He will be provided Librium and resources for alcohol abuse and mental health. -DDX includes but is not limited to: Alcohol withdrawal, anxiety, malingering/secondary gain -Co-morbidities complicating care: anxiety alcohol abuse -Social determinants of health: homeless, daily alcohol use -Interventions:Librium 50mg -Shared decision making / Disposition: discharged -RX Librium CIWA-Ar for Alcohol Withdrawal from [employer] on 02/27/2024 All calculations should be rechecked by clinician prior to use RESULT SUMMARY: 4 points Patients with scores <= typically do not require medication for withdrawal. INPUTS: Nausea/vomiting ?> 0 = No nausea and no vomiting Tremor ?> 0 = No tremor Paroxysmal sweats ?> 0 = No sweat visible Anxiety ?> 4 = Moderately anxious, or guarded, so anxiety is inferred Agitation ?> 0 = Normal activity Tactile disturbances ?> 0 = None Auditory disturbances ?> 0 = Not present Visual disturbances ?> 0 = Not present Headache/fullness in head ?> 0 = Not Present Orientation/clouding of sensorium ?> 0 = Oriented, can do serial additions Discharge Plan Discharge Clinical Impression: Anxiety, Homeless Patient Disposition: Home, Self-Care Condition: Stable Instructions: Antibiotic Form, Anxiety (ED) Additional Instructions: You were seen in the emergency department for anxiety and mild alcohol withdrawal. You can take Librium for alcohol withdrawal symptoms. You can follow-up at [facility] for anxiety and substance abuse. You will be provided a list of homeless shelters. He can return to the ED if develop new worsening symptoms. Prescriptions: New chlordiazepoxide HCl 25 mg capsule 50 mg PO TID PRN (Reason: alcohol withdrawal) Qty: 20 0RF No Action albuterol sulfate [ProAir HFA] 90 mcg/actuation HFA aerosol inhaler 2 puff INHALATION Q4H PRN (Reason: shortness of breath or wheezing) Qty: 8.5 5RF atorvastatin 20 mg tablet 20 mg PO HS Qty: 30 5RF bupropion HCl 150 mg Tablet Extended Release 24 Hr 150 mg PO QAM Dulera 200-5 mcg/actuation Hfa Aerosol Inhaler 2 puff INHALATION Q12H cefdinir 300 mg capsule 300 mg PO Q12H 4 Days Qty: 8 0RF Follow-up/Referrals: Luis,Pooja Carpenter DO [Primary Care Provider] -
[2024-02-27] MEDS: chlordiazePOXIDE (*CRX) 25 MG CAPSULE 50 MG PO (08:00)
== END 2024-02-27 07:55 | disposition home or self-care (01) ==
PROVIDERS: Emergency Provider Emergency Medicine; PCP Family Medicine
DX: F41.9 Anxiety disorder, unspecified (principal); Z59.01 Sheltered homelessness; J45.909 Unspecified asthma, uncomplicated; E66.3 Overweight; Z68.25 Body mass index [BMI] 25.0-25.9, adult; F32.A Depression, unspecified; Z87.891 Personal history of nicotine dependence; Z79.899 Other long term (current) drug therapy
CPT/HCPCS: 93005; 96360; 99283; A9270; J7030